=== PATIENT | male | born 1960 ===

== ENCOUNTER → 2023-07-17 13:50 | Outpatient (CLI) | payer BC, SELFPAY ==
--- NOTE | ~2023-07-17 | MR_ITS ---
MRI of the left knee Clinical history: Pain Technique: Coronal proton density and proton density-weighted images, sagittal proton-density and T2 fat-sat images, and axial proton-density fat-saturated images were acquired. Findings: Anterior and posterior cruciate ligaments are intact. Medial collateral ligament and the la teral collateral ligament complex are intact. Popliteus tendon is intact. Radial tear at the posterior root of the medial meniscus is present. No lateral meniscal tear identif ied. 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 There is extensive reactive marrow edema in the medial femoral condyle, and to a lesser extent th e medial tibial plateau. No definite subchondral insufficiency fracture identified. There is mild cho ndral thinning in the lateral compartment. There is patchy moderate chondral malacia patella. Extensor mechanism is intact. Moderate to large joint effusion present. No Huerta's cyst. Impression: Radial tear at the posterior root of the medial meniscus. High-grade chondromalacia the medial compartment with extensive reactive marrow edema in the medial f emoral condyle, and to a lesser extent, the medial tibial plateau region. This likely represents stre ss response. No definite subchondral insufficiency fracture identified. Patchy moderate chondromalacia patella. Moderate to large joint effusion. Reviewed, dictated and finalized at location [facility] Impression: Radial tear at the posterior root of the medial meniscus. High-grade chondromalacia the medial compartment with extensive reactive marrow edema in the medial femoral condyle, and to a lesser extent, the medial tibial plateau region. This likely represents stress response. No definite subchondra l insufficiency fracture identified. Patchy moderate chondromalacia patella. Moderate to large joint effusion.
== END ==
PROVIDERS: PCP Physician Assistant; Visit Provider Physician Assistant
DX: M94.262 Chondromalacia, left knee (principal); M25.462 Effusion, left knee; M23.222 Derangement of posterior horn of medial meniscus due to old tear or injury, left knee; G89.29 Other chronic pain
CPT/HCPCS: 73721